=== PATIENT | female | born 1945 | race Caucasian/White ===

== ENCOUNTER 2022-04-29 11:46 | Day surgery (SDC) | payer MEDICARE ==
[2022-04-27 10:04] VITALS: BMI 21.1
[2022-04-29] MEDS ORDERED: Bupivacaine PF 0.5% 30 ML VIAL ONE (13:32)
[2022-04-29] MEDS ORDERED: Neomycin-Polymyxin 1 ML AMP ONE (13:32)
[2022-04-29] MEDS ORDERED: CEFAZOLIN 1 GM VIAL ONE (13:32)
[2022-04-29] MEDS ORDERED: Scopolamine 1.5 mg/72 hour Patch ONE (13:36)
[2022-04-29] MEDS ORDERED: Famotidine/PF 20 mg/2ml Vial ONE (13:36)
[2022-04-29] MEDS ORDERED: Ropivacaine 0.2% 550 ML 550 ML NERVE BLCK SCH (13:45)
[2022-04-29] MEDS ORDERED: Ondansetron PF 4 MG/2 ML Vial ONE (13:48)
[2022-04-29] MEDS ORDERED: Dexamethasone 4 mg/ml Vial ONE (13:48)
[2022-04-29] MEDS ORDERED: PROPOFOL 20 ML ONE (13:48)
[2022-04-29] MEDS ORDERED: Fentanyl 100 MCG/2 ML VIAL ONE (13:48)
[2022-04-29] MEDS ORDERED: Clindamycin/D5W 600 mg/50 ml Premix Bag ONE (13:48)
[2022-04-29] MEDS ORDERED: PROPOFOL 60 ML ONE (14:03)
[2022-04-29] MEDS ORDERED: PROPOFOL 40 ML ONE (14:56)
== END 2022-04-29 17:15 | disposition home or self-care (01) ==
LOC: CSHSDC 11:46
PROVIDERS: ATTEND Podiatrist Foot & Ankle Surgery
PROC: 0SGP04Z Fusion of Right Toe Phalangeal Joint with Internal Fixation Device, Open Approach (ICD-10-PCS; principal; 2022-04-29)
DX: Z01.818 Encounter for other preprocedural examination (principal); M20.21 Hallux rigidus, right foot; M21.41 Flat foot [pes planus] (acquired), right foot; M20.41 Other hammer toe(s) (acquired), right foot; I10 Essential (primary) hypertension; E78.2 Mixed hyperlipidemia; J45.909 Unspecified asthma, uncomplicated; F17.210 Nicotine dependence, cigarettes, uncomplicated; R94.31 Abnormal electrocardiogram [ECG] [EKG]; Z88.0 Allergy status to penicillin; Z88.5 Allergy status to narcotic agent; Z88.8 Allergy status to other drugs, medicaments and biological substances; Z88.2 Allergy status to sulfonamides; Z79.899 Other long term (current) drug therapy
CPT/HCPCS: 28285 ×2; 28291; 73630; A4306; C1713; C1776; J0690; J1100; J2405; J2704; J2795; J3010; J3490; S0020; S0028

== ENCOUNTER 2023-08-19 08:30 | Outpatient (CLI) | payer MEDICARE | END 2023-08-19 08:31 | disposition home or self-care (01) | LOC: CSHRAD 08:30 | PROVIDERS: ATTEND Internal Medicine Rheumatology | DX: M18.0 Bilateral primary osteoarthritis of first carpometacarpal joints (principal) | CPT/HCPCS: 72070 ==